=== PATIENT | male | born 1975 ===

== ENCOUNTER 2023-08-04 12:50 | Emergency (ER) | payer OTHER, SELFPAY ==
--- NOTE | ~2023-08-04 | XR_ITS ---
EXAMINATION: XR LUMBOSACRAL SPINE CLINICAL INFORMATION: Low back pain COMPARISON: None available. TECHNIQUE: Three views of the lumbosacral spine. FINDINGS: There are 5 nonrib-bearing lumbar-type vertebral bodies. The height of the vertebral bodies and disc spaces is well-maintained. There is straightening of the usual lumbar lordosis which can be seen with muscle spasm. There is no degenerative facet joint disease. No spondylolisthesis. The sacroiliac joints are symmetric. XR/XR lumbar spine 2-3V IMPRESSION: 1. Straightening of the usual lumbar lordosis which can be seen with muscle spasm. 2. No bony abnormality.
[2023-08-04 14:31] VITALS: BP 126/80; PULSE 70; RESP 18; TEMP 36; O2SAT 99; BMI 23.6
--- NOTE | 2023-08-04 14:31 | ED.GENADULT ---
HPI - General Adult General Chief complaint: Back Pain/Injury Stated complaint: Back inj-work inj Time Seen by Provider: 08/04/23 16:45 Source: patient, RN notes reviewed and old records reviewed Mode of arrival: ambulatory Limitations: no limitations History of Present Illness ED Provider: ESPERANZA WILLINGHAM PA-C HPI narrative: 47-year-old male with no significant past medical history presents to the ED today for evaluation of left lower back pain x4 days. 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 Reports continued pain. Pain has started to radiate down his left leg. Pain is exacerbated with movement. Taking Advil at home with minimal relief. Denies history of IV drug use. Denies history of spinal surgeries. Denies saddle anesthesia, bowel or bladder incontinence or retention, numbness/tingling/weakness of the lower extremities, dysuria, hematuria. Related Data Previous Rx's ?Medication ?Instructions ?Recorded cyclobenzaprine 5 mg tablet 5 mg PO Q8H PRN muscle spasm #7 08/04/23 tabs lidocaine 5 % topical patch 1 patch topical DAILY #15 ea 08/04/23 (Lidoderm) naproxen 500 mg tablet 500 mg PO Q8-12H PRN pain (scale 08/04/23 score 4-6) #14 tabs Allergies Allergy/AdvReac Type Severity Reaction Status Date / Time No Known Allergies Allergy Verified 08/04/23 14:34 Review of Systems Review of Systems: Constitutional: No fever, chills, fatigue, night sweats, weight changes ENT/Mouth: No ear pain, hearing loss, nasal congestion, sinus pain, rhinorrhea, sore throat Eyes: No eye pain, swelling, redness, vision changes, discharge Cardio: No chest pain, palpitations, HANEY, orthopnea, peripheral edema Pulm: No SOB, cough, sputum, wheezing, dyspnea, hemoptysis GI: No nausea, vomiting, hematemesis, abdominal pain, diarrhea, constipation, hematochezia, melena : No irregular bleeding, dysuria, frequency, urgency, hesitancy, hematuria, flank pain, urinary flow changes, urinary incontinence or retention MSK: +back pain, No neck pain, joint pain, myalgias Skin: No lesions, rashes Neuro: No weakness, numbness, paresthesias, LOC, dizziness, headache All other systems reviewed and are negative. [facility] Past Medical History Attestation statement: The following information was validated with the patient. Source: old records reviewed and nursing notes reviewed Social History Social History Advance Directives: No Advance Directives Information Provided: Yes Do you have a plan to hurt others: No Plan Physical Exam ED Vital Signs: Vital Signs - 24 hr 08/04/23 14:31 Temperature 96.8 F Pulse Rate 70 Respiratory Rate 18 Blood Pressure 126/80 Pulse Oximetry 99 Oxygen Delivery Method Room Air BMI result Body Mass Index 23.6 Vital signs stable, afebrile Const General: cooperative, healthy appearing, comfortable and no acute distress Orientation/consciousness: patient oriented x3 Limitations: no limitations HENMT Head: Yes normal to inspection, Yes No palpable skull fracture present, Yes normocephalic and Yes atraumatic Eyes General: appearance normal, both eyes and all related structures Pupils: Equal, round and reactive pupils present EOM: EOMs intact bilaterally Neck Other: No cervical midline spinous tenderness or step-off deformity. Full ROM intact Neck: Yes normal visual inspection, Yes full ROM, Yes no lymphadenopathy and Yes no meningeal signs Resp Effort & Inspection: normal respiratory effort and able to speak in complete sentences Auscultation: clear to auscultation bilaterally Cardio Rate: regular rate Rhythm: regular rhythm GI Inspection: Yes normal to inspection Palpation (GI): Soft to palpation and nontender General: Yes no CVA tenderness Back/Spine/Pelvis Other: No midline spinous tenderness or step-off deformity. There is left lumbar paraspinal muscle tenderness to palpation with palpable spasm. No palpable mass or fluctuance Back: no CVA tenderness Skin General skin exam: no rashes or lesions noted Neuro Other: Strength 5/5 intact throughout.? No saddle anesthesia.? Sensation intact to light touch.? Neurovascular intact distally.? General: patient oriented x3, gait normal and no meningeal signs Cranial nerves: Yes Equal, round and reactive pupils present Gait exam (Neuro): Normal gait present Deep tendon reflexes (DTR's): Right patellar reflex intensity grade: 2+ and Left patellar reflex intensity grade: 2+ Pupils: Normal pupillary reactivity/response: bilateral Course Course Course Narrative: RME performed by Marii Clay PA-C. Patient is a 47 year old assigned male at presenting to the emergency department with low back pain. 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 Patient states that he does lift heavy things and he would like an x-ray. Detailed physical exam and review of systems are deferred to the primary care nurse. Imaging ordered. Patient placed back in the waiting room pending room availability and results. Reevaluation(s) Reevaluation #1: 1710-- x-rays do not demonstrate acute fracture. They do show findings consistent with muscle spasm which I appreciate on my physical examination. I did discuss these results with patient. He is receiving Flexeril, lidocaine and naproxen in the ED for pain. He states that he will be getting a ride home since he was administered Flexeril. Patient has remained stable throughout ED visit today. Discussed worrisome signs and symptoms and when to return to the ED. All questions answered at this time. Patient is agreeable with disposition and stable for discharge. Medical Decision Making Medical Decision Making MDM Narrative: 47-year-old male with no significant past medical history presents to the ED today for evaluation of left lower back pain x4 days. Vital signs stable, afebrile. He is nontoxic-appearing and in no acute distress. On exam, no midline spinous tenderness or step-off deformity. There is left-sided lumbar paraspinal muscle tenderness to palpation with palpable spasm. No palpable mass, fluctuance. He is ambulating with steady gait unassisted. No CVAT bilaterally. Sensation intact to light touch throughout. Neurovascularly intact distally. Strength 5/5 intact throughout. Differential diagnosis includes MSK sprain/strain, contusion, fracture, subluxation, disc herniation, sciatica. Unlikely renal colic, nephrolithiasis, UTI. Unlikely cord compression, cauda equina, Guillain-Waban, epidural abscess. Plan for imaging, pain control and re-evaluation. Differential Diagnosis Differential Diagnoses: The differential diagnosis associated with the presentation includes as above Admission/Observation Not indicated. Independent Interpretation I performed an independent interpretation of an: Plain X-Ray Interpretation: X-ray lumbar spine without acute fracture, agree with radiologist's interpretation. Radiology Impression Discussion of test interpretation with radiology: I have reviewed the radiologist's reading. Radiologist Impression: EXAMINATION: XR LUMBOSACRAL SPINE CLINICAL INFORMATION: Low back pain COMPARISON: None available. TECHNIQUE: Three views of the lumbosacral spine. FINDINGS: There are 5 nonrib-bearing lumbar-type vertebral bodies. The height of the vertebral bodies and disc spaces is well-maintained. There is straightening of the usual lumbar lordosis which can be seen with muscle spasm. There is no degenerative facet joint disease. No spondylolisthesis. The sacroiliac joints are symmetric. XR/XR lumbar spine 2-3V IMPRESSION: 1. Straightening of the usual lumbar lordosis which can be seen with muscle spasm. 2. No bony abnormality. External Record Review External record reviewed: Inpatient record Prescription Management I considered prescription management with: Pain Medication (Naproxen) and Other (Flexeril, lidocaine patch) Social Determinants Patient?s care significantly limited by Social Determinants of Health including: Other Social Determinant of Health Critical Care Time Critical Care Time Critical Care Time: No Discharge Plan Discharge Clinical Impression: Lumbar paraspinal muscle spasm Patient Disposition: Home, Self-Care Instructions: Muscle Spasm (ED), Back Pain (ED) Additional Instructions: Your imaging studies today did not show acute fracture. You have a spasm of your lumbar muscles. Avoid bending, lifting, or twisting. Use ice several times per day for 20 minutes at a time for the next 48 hours and then change to heat. Flexeril is a muscle relaxer. Take this at night as it makes you drowsy. Do not drive, drink alcohol, or operate machinery while taking it. Naproxen is an anti-inflammatory / pain medication. Take with food. Do not take this with Ibuprofen. Lidoderm patches are numbing patches. Apply to painful areas. In addition you may take Tylenol at home. Follow up with your primary care provider as needed If your pain worsens, if you develop new numbness, tingling, weakness, loss of bowel or bladder function call 911 or return to the ER immediately for evaluation. Prescriptions: New cyclobenzaprine 5 mg tablet 5 mg PO Q8H PRN (Reason: muscle spasm) Qty: 7 0RF lidocaine [Lidoderm] 5 % adhesive patch,medicated 1 patch topical DAILY Qty: 15 0RF Rx Instructions: leave on most painful area for up to 12 hrs naproxen 500 mg tablet 500 mg PO Q8-12H PRN (Reason: pain (scale score 4-6)) Qty: 14 0RF Referrals: [facility] [place] Medicine [Provider Group] [facility] [place] [facility] [Provider Group] [facility] [place] [facility] [Provider Group] Stand Alone Forms: Work/School Release Print Language: Nauruan
--- OUTSIDE RECORDS SUMMARY | 2023-08-04 16:56 | XMS_ITS | Continuity of Care Document ---
Author Organization [facility] Address [address] [place] [address]- Care Team Providers Care Imaging Aide Name Role Phone Mallory GARDNER, [place] Primary Care Physician [place] [facility] [place] 02[place]18/20 [facility] [address] [place] [id number] Attending Physician: Kalina Richmond Admitting Physician: Kalina Richmond Referring Physician: Kalina Richmond Allergies, Adverse Reactions, Alerts No Known Medication Allergies Medications Azathioprine 4 tablet, By Mouth, Daily, 0 Refills, Maintenance, 01/19/20 10:48:00 EST, Partial fill upon patientrequest Start Date: 01/19/20 Status: Ordered PredniSONE By Mouth, Daily, 0 Refills, Maintenance, 01/19/20 10:49:00 EST, Partial fill upon patient request Start Date: 01/19/20 Status: Ordered
--- OUTSIDE RECORDS SUMMARY | 2023-08-04 16:56 | XMS_ITS | Continuity of Care Document ---
Author Organization [facility] Address [address] [place] [id number]- Care Team Providers Care Evp General Counsel Name Role Phone Not on Staff, PCP Primary Care Physician Unavail able Encounter [facility] Date(s): 08/18/19 - 11/28/19 [facility] [address] [place] [id number]- [facility] Attending Physician: Rodrigo Ibarra MD Admitting Physician: Rodrigo Ibarra MD Referring Physician: [place] Tejada NP
--- OUTSIDE RECORDS SUMMARY | 2023-08-04 16:56 | XMS_ITS | Continuity of Care Document ---
Author Organization [facility] Address [address] [place] [address]- Care Team Providers Care Mines Safety Engineer Name Role Phone [place] Tejada NP Primary Care Physician Encounter [facility] [place] Date(s): 11/03/19 - 02/06/20 [facility] [address] [place] [id number] Attending Physician: Rodrigo Ibarra MD Referring Physician: London Tejada NP Allergies, Adverse Reactions, Alerts No Known Medication Allergies Medications Azathioprine 4 tablet, By Mouth, Daily, 0 Refills, Maintenance, 01/19/20 10:48:00 EST, Partial fill upon patientrequest Start Date: 01/19/20 Status: Ordered PredniSONE By Mouth, Daily, 0 Refills, Maintenance, 01/19/20 10:49:00 EST, Partial fill upon patient request Start Date: 01/19/20 Status: Ordered
--- OUTSIDE RECORDS SUMMARY | 2023-08-04 16:56 | XMS_ITS | Continuity of Care Document ---
Author Organization [facility] Address [address] [place] [id number]- Care Team Providers Care School Counselor Name Role Phone Not on Staff, PCP Primary Care Physician Unavail able Encounter [facility] Date(s): 10/29/19 - 11/28/19 [facility] [address] [place] [id number] [facility] Attending Physician: Kalina Richmond Admitting Physician: Kalina Richmond Referring Physician: Kalina Richmond
[2023-08-04] MEDS: Cyclobenzaprine HCl 10 MG TABLET PO (17:42)
[2023-08-04] MEDS: Ketorolac Tromethamine 30 MG/ML VIAL IM (17:42)
[2023-08-04] MEDS: Lidocaine 4 % Patch ADH..PATCH 1 PATCH TRANSDERMA (17:43)
--- NOTE | 2023-08-04 17:45 | PC.NURSE ---
pt a&ox3, c/o 10/03 lower back pain, pt medicated per orders
[2023-08-04 17:55] VITALS: BP 121/76; PULSE 72; RESP 18; TEMP 36.6; O2SAT 99
== END 2023-08-04 17:56 | disposition home or self-care (01) ==
PROVIDERS: Emergency Provider Internal Medicine
DX: M62.830 Muscle spasm of back (principal)
CPT/HCPCS: 72100; 96372; 99283; 99284; J1885